=== PATIENT | male | born 1940 | race Caucasian/White ===

== ENCOUNTER 2020-09-23 16:52 | Emergency (ER) | payer MEDICARE, OTHER ==
[~2020-09-23] VITALS: Ht 172.7 cm; Wt 81.6 kg
--- NOTE | 2020-09-23 17:23 | PHYS DOC ---
Past History Past Medical History: Arrhythmia, ID (DULCE MARIA JUAREZ MD) Past Medical History: CAD, Dementia, Other (AGUSTINA LÓPEZ MD) Past Surgical History: Coronary Bypass Surgery, Other Additional Past Surgical Histo: Stents. (DULCE MARIA JUAREZ MD) Alcohol Use: None (DULCE MARIA JUAREZ MD) Adult General Chief Complaint Chief Complaint: MECHANICAL FALL [facility] HPI Patient is a 89-year-old male who presents to the emergency room complaining head and neck pain after a fall from standing. Patient is unsure if he lost consciousness or he passed out. He does not remember what happened. He does state that he is on warfarin for heart issues. He denies any numbness or weakness. He has not had any difficulty with speech. His daughter came in with him and states that he has been having problems with dementia. They have been unable to get him to take his medications for the last 5 days. He denies any chest pain, shortness of breath, abdominal pain, nausea, vomiting, fever. (DULCE MARIA JUAREZ MD) HPI Discussion with his daughter Cinthya Crowley- [phone]. Advised his fall was documented on video camera, The patient apparently caught his foot on the edge of the sidewalk when he turned around. Patient fell because of trip and fall. Daughter states he just recently was evaluated at and underwent cardiac cath in preparation for possible replacement of aortic valve. At the time of cath patient did receive a stent and angioplasty. Patient normally follows with Dr. Solorzano at for his cardiac issues. Patient has been putting off a decision for valve replacement. Pt. has been non-compliant with cardiac meds. Patient has also been noncompliant with his diabetic meds and diet. Patient has had very poor intake of fluids. Patient has been exposed to who recently had a GI illness and grandson who had a viral illness. No recent travel outside the [place] area. Patient follows with Dr. Chavez and Tony Avendano. (AGUSTINA LÓPEZ MD) Review of Systems Review of Systems Complete ROS is negative unless otherwise documented in HPI (DULCE MARIA JUAREZ MD) Family History Family History Noncontributory to presentation (AGUSTINA LÓPEZ MD) Current Medications Current Medications See nursing for home meds (AGUSTINA LÓPEZ MD) Allergies Allergies Allergies Coded Allergies Type Severity Reaction Last Updated Verified erythromycin base Allergy Unknown 09/23/20 Yes morphine Allergy Unknown 09/23/20 Yes (DULCE MARIA JUAREZ MD) Physical Exam Physical Exam General: Awake, alert, NAD. Well Nourished, well hydrated. Cooperative HEENT: Atraumatic, EOMI, PERRL, airway patent, moist oral mucosa Neck: Supple, trachea midline, cervical spine tenderness Respiratory: CTA bilaterally, normal effort, no wheezing/crackles CV: RRR, no murmur, cap refill <2 GI: Soft, nondistended, nontender, no masses MSK: No obvious deformities Skin: Warm, dry, intact Neuro: A&O x3, speech NL, sensory and motor grossly intact, no focal deficits Psych: Normal affect, normal mood, not suicidal or homicidal (DULCE MARIA JUAREZ MD) Current Patient Data Vital Signs Vital Signs Date Time Temp Pulse Resp B/P (MAP) Pulse Ox O2 Delivery O2 Flow Rate FiO2 09/23/20 16:58 97.8 68 16 128/75 (92) 97 Room Air (DULCE MARIA JUAREZ MD) EKG EKG [] (DULCE MARIA JUAREZ MD) EKG My interpretation EKG shows a sinus rhythm at 67 bpm. There is some nonspecific contour abnormalities and the inferior leads. But no findings of acute STEMI with contralateral changes. (AGUSTINA LÓPEZ MD) Radiology/Procedures Radiology/Procedures [] (DULCE MARIA JUAREZ MD) Radiology/[place] [address] IMAGING REPORT Signed PATIENT: DELICIA MUHAMMAD ACCOUNT: [id number] : 1940 LOCATION: ER AGE: 79 SEX: M EXAM STATUS: REG ER ORD. PHYSICIAN: DULCE MARIA JUAREZ MD REASON: pain, trauma PROCEDURE: CT THORACIC SPINE WO CONTRAST Exam: CT the thoracic spine without contrast INDICATION: Pain, trauma TECHNIQUE: Sequential axial images through the thoracic spine obtained without IV contrast. Sagittal and coronal reformatted images were reconstructed from the axial data and reviewed. Comparisons: None FINDINGS: Vertebral body heights and alignment are well-maintained. Fracture through the thoracic spine is not identified. No significant spondylotic change in the thoracic spine. Strandy opacities at dependent portion lungs likely representing atelectasis. No suspicious lung nodules. IMPRESSION: Negative CT thoracic spine for acute traumatic injury. Exposure: One or more of the following in the visualized dose reduction techniques were utilized for this examination: 1. Automated exposure control 2. Adjustment of the MA and/or KV according to patient size 3. Use of iterative of reconstructive technique Electronically signed by: Shane Wiley MD (09/23/2020 5:51 PM) [facility] DICTATED AND SIGNED BY: SHANE WILEY MD DATE: 09/23/201747 CC: DULCE MARIA JUAREZ MD; MARITA MERINO PAC ~MTH0 [address] [address] IMAGING REPORT Signed PATIENT: DELICIA MUHAMMAD ACCOUNT: [id number] : 1940 LOCATION: ER AGE: 79 SEX: M EXAM STATUS: REG ER ORD. PHYSICIAN: DULCE MARIA JUAREZ MD REASON: pain PROCEDURE: WRIST 3V LEFT Left wrist 3 views: Reason for examination: Pain. No acute fracture or dislocation is seen. The bone density is normal. No abnormal periosteal reaction is seen. There is severe degenerative change with some hypertrophic spurring at the first carpometacarpal joint. Remaining joint spaces are fairly well-maintained. Arteriosclerotic vascular calcification is present. IMPRESSION: No acute bony abnormality at the left wrist but there is severe degenerative changes at the first carpometacarpal joint. Vascular calcification present. Electronically signed by: Jake Martinez MD (09/23/2020 7:15 PM) [facility] DICTATED AND SIGNED BY: JAKE MARTINEZ MD DATE: 09/23/201912 CC: AGUSTINA LÓPEZ MD; DULCE MARIA JUAREZ MD; MARITA MERINO PAC ~LBP0 0 [place] [address] IMAGING REPORT Signed PATIENT: DELICIA MUHAMMAD ACCOUNT: [id number] : 1940 LOCATION: ER AGE: 79 SEX: M EXAM STATUS: REG ER ORD. PHYSICIAN: DULCE MARIA JUAREZ MD REASON: pain, fall PROCEDURE: CT LUMBAR SPINE WO CONTRAST EXAM: CT lumbar spine without IV contrast CLINICAL HISTORY: Pain back pain COMPARISON: None available. TECHNIQUE: Helical CT was performed through the lumbar spine. Axial, coronal and sagittal reformatted images were generated. PQRS compliance statement - One or more of the following individualized dose reduction techniques were utilized for this study: 1. Automated exposure control 2. Adjustment of the mA and/or kV according to patient size 3. Use of iterative reconstruction technique FINDINGS: Vertebral body heights are preserved. Mild to moderate multilevel disc height loss, most prominent at L3-4, L4-5 and L5-S1. Multilevel endplate proliferative changes are seen at the visualized lumbar levels resulting in up to moderate central canal stenosis at multiple levels. Straightening of the normal lumbar lordosis. No significant spondylolisthesis. Decreased bone mineral density. Infrarenal abdominal aortic aneurysm measures up to 3 cm. Colonic diverticulosis without evidence for acute diverticulitis. Moderate colonic stool content. IMPRESSION: 1. Multilevel spondylosis as above 2. Negative acute fracture or subluxation. Electronically signed by: Abraham Knox MD (09/23/2020 5:45 PM) [facility] DICTATED AND SIGNED BY: ABRAHAM KNOX MD DATE: 09/23/201740 CC: DULCE MARIA JUAREZ MD; MARITA MERINO [facility] ~MTH0 0 [place] [address] IMAGING REPORT Signed PATIENT: DELICIA MUHAMMAD ACCOUNT: [id number] : 1940 LOCATION: ER AGE: 79 SEX: M EXAM STATUS: REG ER ORD. PHYSICIAN: DULCE MARIA JUAREZ MD REASON: trauma, neck pain PROCEDURE: CT HEAD AND CERVICAL SPINE WO EXAM: CT HEAD WITHOUT IV CONTRAST CLINICAL HISTORY: trauma, neck pain COMPARISON: None. TECHNIQUE: Routine CT of the head without contrast. PQRS compliance statement - One or more of the following individualized dose reduction techniques were utilized for this study: 1. Automated exposure control 2. Adjustment of the mA and/or kV according to patient size 3. Use of iterative reconstruction technique FINDINGS: There is no evidence of hemorrhage, mass or extra-axial fluid collection. Chapman-white differentiation is maintained with no evidence of edema. Subcortical, periventricular as well as deep white matter foci of hypoattenuation, likely changes of chronic small vessel disease. There is no mass effect or shift of the intracranial structures. The ventricles and cerebral sulci are prominent for the patients stated age consistent with generalized cerebral volume loss. The cerebellum and brainstem are unremarkable. The calvarium demonstrates no evidence of fracture or focal lesion. There is normal aeration of the visualized paranasal sinuses and mastoid air cells. The visualized portions of the orbits are normal. Atherosclerotic calcifications of the intracranial internal carotid and vertebral arteries is seen. IMPRESSION: No evidence for acute intracranial process. White matter changes likely chronic small vessel disease. EXAM: CT CERVICAL SPINE WITHOUT IV CONTRAST CLINICAL HISTORY: Reason: trauma, neck pain / Spl. Instructions: / History: COMPARISON: None available. TECHNIQUE: Helical CT of the cervical spine was performed. Axial, coronal and sagittal reformatted images were also performed. PQRS compliance statement - One or more of the following individualized dose reduction techniques were utilized for this study: 1. Automated exposure control 2. Adjustment of the mA and/or kV according to patient size 3. Use of iterative reconstruction technique FINDINGS: Vertebral body heights are preserved. Severe C4-5, moderate to severe C5-6, C6-7 disc height loss. Mild C3-4 disc height loss. Anterior posterior endplate osteophytes are seen at multiple levels, most prominent at C4-5 resulting in at least moderate central canal stenosis and multilevel neural foraminal narrowing is seen. Mild to moderate. No spondylolisthesis. Straightening of the normal cervical lordosis. Atlantodental degenerative changes are seen. C1 ring is intact. IMPRESSION: 1. Negative acute fracture or subluxation. 2. Multilevel spondylosis as above Electronically signed by: Abraham Knox MD (09/23/2020 5:40 PM) [facility] DICTATED AND SIGNED BY: ABRAHAM KNOX MD DATE: 09/23/20 1733 CC: DULCE MARIA JUAREZ MD; MARITA MERINO PAC ~MTH0 0 (AGUSTINA LÓPEZ MD) Heart Score Risk Factors: Risk Factors: DM, Current or recent (<one month) smoker, HTN, HLP, family history of CAD, obesity. Risk Scores: Risk Factors: DM, Current or recent (<one month) smoker, HTN, HLP, family history of CAD, obesity. (DULCE MARIA JUAREZ MD) HEART Score for Chest Pain: HEART Score for Chest Pain Response (Comments) Value History Slighlty/Non-Suspicious 0 ECG Nonspecific Repolarizatio 1 Age > 65 2 Risk Factors 1 or 2 Risk Factors 1 Troponin < Normal Limit 0 Total 4 Course & Med Decision Making Course & Med Decision Making Pertinent Labs and Imaging studies reviewed. (See chart for details) Patient is an 79-year-old male on warfarin who presents to the emergency room complaining of head pain and neck pain after a fall. Is unclear at this time whether this was due to syncope or a fall. Patient does have some dementia and has had some altered mental status over the last couple of days. It is unclear whether this is normal for him. CT head and cervical spine were initially ordered. Patient then started complaining of lumbar spine pain and a CT of the lumbar spine was also added. Lab work was ordered to evaluate for possible causes of syncope as he is unable to provide us a history. (DULCE MARIA JUAREZ MD) Course & Med Decision Making See Dr. Juarez chart for details. Pt. requesting discharge. Pt. seems aware of risks. Pt. work up discussed with Daughter. Impression: 1. Trip and Fall 2. Dehydration ( Elevated Bun/Creat 34/2.4) 3. Viral Syndrome 4. Leukocytosis 14.3 5. Dementia ? (AGUSTINA LÓPEZ MD) Dragon Disclaimer Dragon Disclaimer This electronic medical record was generated, in whole or in part, using a voice recognition dictation system. (DULCE MARIA JUAREZ MD) Departure Departure: Impression: Primary Impression: Fall Referrals: MARITA MERINO (PCP) Dragon Disclaimer This chart was dictated in whole or in part using Voice Recognition software in a busy, high-work load, and often noisy Emergency Department environment. It may contain unintended and wholly unrecognized errors or omissions. (AGUSTINA LÓPEZ MD) Attending Co-Sign Attending Co-Sign The patient was seen and interviewed as well as examined at the bedside. The chart was reviewed. The case was discussed. Agree with the plan of care. (AGUSTINA LÓPEZ MD) DULCE MARIA JUAREZ MD Sep 23, 2020 17:23 AGUSTINA LÓPEZ MD Sep 23, 2020 18:14
[2020-09-23 17:24] LABS: BASO # 0.2 x10^3/uL (0.0-0.2); BASO % 1 % (0-3); EOS # 0.3 x10^3/uL (0.0-0.7); EOS % 2 % (0-3); HEMATOCRIT 42.6 % (39.0-53.0); HEMOGLOBIN 13.7 g/dL (13.0-17.5); LYMPH # 2.8 x10^3/uL (1.0-4.8); LYMPH % 20 % (24-48); MEAN CORPUSCULAR HEMOGLOBIN 32 pg (25-35); MEAN CORPUSCULAR HGB CONC 32 g/dL (31-37); MEAN CORPUSCULAR VOLUME 99 fL (79-100); MONO # 1.2 x10^3/uL (0.0-1.1); MONO % 8 % (0-9); NEUT # 9.9 x10^3uL (1.8-7.7); NEUT % 69 % (31-73); PLATELET COUNT 281 x10^3/uL (140-400); RED BLOOD COUNT 4.29 x10^6/uL (4.30-5.70); RED CELL DISTRIBUTION WIDTH 13.5 % (11.5-14.5); WHITE BLOOD COUNT 14.3 x10^3/uL (4.0-11.0)
[2020-09-23 17:27] LABS: CALCIUM 9.9 mg/dL (8.5-10.1); CREATININE 2.4 mg/dL (0.7-1.3); GFR 26.1; POTASSIUM 4.2 mmol/L (3.5-5.1)
[2020-09-23 17:32] LABS: ALBUMIN 3.9 g/dL (3.4-5.0); ALBUMIN/GLOBULIN RATIO 0.9 (1.0-1.7); TOTAL BILIRUBIN 0.7 mg/dL (0.2-1.0); TOTAL PROTEIN 8.1 g/dL (6.4-8.2)
--- NOTE | 2020-09-23 17:35 | EKG ---
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
--- NOTE | 2020-09-23 17:43 | RAD ---
EXAM: CT HEAD WITHOUT IV CONTRAST CLINICAL HISTORY: trauma, neck pain COMPARISON: None. TECHNIQUE: Routine CT of the head without contrast. PQRS compliance statement - One or more of the following individualized dose reduction techniques wer e utilized for this study: 1. Automated exposure control 2. Adjustment of the mA and/or kV according to patient size 3. Use of iterative reconstruction technique FINDINGS: There is no evidence of hemorrhage, mass or extra-axial fluid collection. Chapman-white differentiation is maintained with no evidence of edema. Subcortical, periventricular as w ell as deep white matter foci of hypoattenuation, likely changes of chronic small vessel disease. There is no mass effect or shift of the intracranial structures. The ventricles and cerebral sulci are prominent for the patients stated age consistent with generaliz ed cerebral volume loss. The cerebellum and brainstem are unremarkable. The calvarium demonstrates no evidence of fracture or focal lesion. There is normal aeration of the visualized paranasal sinuses and mastoid air cells. The visualized portions of the orbits are normal. Atherosclerotic calcifications of the intracranial internal carotid and vertebral arteries is seen. IMPRESSION: No evidence for acute intracranial process. White matter changes likely chronic small vessel disease. EXAM: CT CERVICAL SPINE WITHOUT IV CONTRAST CLINICAL HISTORY: Reason: trauma, neck pain / Spl. Instructions: / History: COMPARISON: None available. TECHNIQUE: Helical CT of the cervical spine was performed. Axial, coronal and sagittal reformatted im ages were also performed. PQRS compliance statement - One or more of the following individualized dose reduction techniques wer e utilized for this study: 1. Automated exposure control 2. Adjustment of the mA and/or kV according to patient size 3. Use of iterative reconstruction technique FINDINGS: Vertebral body heights are preserved. Severe C4-5, moderate to severe C5-6, C6-7 disc height loss. Mi ld C3-4 disc height loss. Anterior posterior endplate osteophytes are seen at multiple levels, most p rominent at C4-5 resulting in at least moderate central canal stenosis and multilevel neural foramina l narrowing is seen. Mild to moderate. No spondylolisthesis. Straightening of the normal cervical magdy dosis. Atlantodental degenerative changes are seen. C1 ring is intact. IMPRESSION: 1. Negative acute fracture or subluxation. 2. Multilevel spondylosis as above Electronically signed by: Abraham Cruz MD (09/23/2020 5:40 PM) [facility]
--- NOTE | 2020-09-23 17:48 | RAD ---
EXAM: CT lumbar spine without IV contrast CLINICAL HISTORY: Pain back pain COMPARISON: None available. TECHNIQUE: Helical CT was performed through the lumbar spine. Axial, coronal and sagittal reformatted images were generated. PQRS compliance statement - One or more of the following individualized dose reduction techniques wer e utilized for this study: 1. Automated exposure control 2. Adjustment of the mA and/or kV according to patient size 3. Use of iterative reconstruction technique FINDINGS: Vertebral body heights are preserved. Mild to moderate multilevel disc height loss, most prominent at L3-4, L4-5 and L5-S1. Multilevel endplate proliferative changes are seen at the visualized lumbar le vels resulting in up to moderate central canal stenosis at multiple levels. Straightening of the normal lumbar lordosis. No significant spondylolisthesis. Decreased bone mineral density. Infrarenal abdominal aortic aneurysm measures up to 3 cm. Colonic diverticulosis without evidence for acute diverticulitis. Moderate colonic stool content. IMPRESSION: 1. Multilevel spondylosis as above 2. Negative acute fracture or subluxation. Electronically signed by: Abraham Cruz MD (09/23/2020 5:45 PM) [facility]
--- NOTE | 2020-09-23 17:53 | RAD ---
Exam: CT the thoracic spine without contrast INDICATION: Pain, trauma TECHNIQUE: Sequential axial images through the thoracic spine obtained without IV contrast. Sagittal and coronal reformatted images were reconstructed from the axial data and reviewed. Comparisons: None FINDINGS: Vertebral body heights and alignment are well-maintained. Fracture through the thoracic spine is not identified. No significant spondylotic change in the thoracic spine. Strandy opacities at dependent portion lungs likely representing atelectasis. No suspicious lung nodu les. IMPRESSION: Negative CT thoracic spine for acute traumatic injury. Exposure: One or more of the following in the visualized dose reduction techniques were utilized for this examination: 1. Automated exposure control 2. Adjustment of the MA and/or KV according to patient size 3. Use of iterative of reconstructive technique Electronically signed by: Shane Whitman MD (09/23/2020 5:51 PM) [facility]
--- NOTE | 2020-09-23 19:18 | RAD ---
Left wrist 3 views: Reason for examination: Pain. No acute fracture or dislocation is seen. The bone density is normal. No abnormal periosteal reaction is seen. There is severe degenerative change with some hypertrophic spurring at the first carpometac arpal joint. Remaining joint spaces are fairly well-maintained. Arteriosclerotic vascular calcificati on is present. IMPRESSION: No acute bony abnormality at the left wrist but there is severe degenerative changes at the first car pometacarpal joint. Vascular calcification present. Electronically signed by: Nicky Petersen MD (09/23/2020 7:15 PM) [facility]
[2020-09-23 20:03] LABS: BILIRUBIN,URINE NEG (NEG); CLARITY,URINE HAZY; COLOR,URINE AMBER; GLUCOSE,URINE 100 mg/dL (NEG); NITRITE,URINE NEG (NEG); UROBILINOGEN,URINE 0.2 mg/dL (0.2 mg/dL); WBC,URINE OCC /HPF (0-4)
[2020-09-23 20:04] LABS: BACTERIA,URINE 0 /HPF (0-FEW); GRANULAR CASTS,URINE OCC /HPF; HYALINE CASTS, URINE OCC /HPF; SQUAMOUS EPITHELIAL CELL,UR OCC /LPF
[2020-09-23] MEDS ORDERED: IV RINGERS SOLUTION,LACTATED 1,000 ML IV ONE (20:45)
[2020-09-23 21:14] VITALS: BP 136/86
== END 2020-09-23 22:15 | disposition home or self-care (01) ==
LOC: ER 16:52
DX: B34.9 Viral infection, unspecified (principal); E86.0 Dehydration; D72.829 Elevated white blood cell count, unspecified; R51.9 Headache, unspecified; M54.2 Cervicalgia; M25.532 Pain in left wrist; I25.810 Atherosclerosis of coronary artery bypass graft(s) without angina pectoris; F03.90 Unspecified dementia, unspecified severity, without behavioral disturbance, psychotic disturbance, mood disturbance, and anxiety; Z88.1 Allergy status to other antibiotic agents; Z88.5 Allergy status to narcotic agent; W01.0XXA Fall on same level from slipping, tripping and stumbling without subsequent striking against object, initial encounter; Y93.89 Activity, other specified; Y92.89 Other specified places as the place of occurrence of the external cause; Y99.8 Other external cause status
CPT/HCPCS: 36415; 70450; 72125; 72128; 72131; 73110; 80053; 81001; 84484; 85025; 85610; 85730; 93005; 96360; 99285; J7120